=== PATIENT | female | born 1965 | race Caucasian/White ===

== ENCOUNTER → 2020-06-14 | Outpatient (CLI) | payer BC ==
[~2020-06-14] MED LIST: IOPAMIDOL 370 MG/ML 200 ML INFUS..BTL INJ ONE; SODIUM CHLORIDE 0.9% 50ML 50 ML ONE
--- NOTE | 2020-06-14 16:08 | Diagnostic Imaging Report ---
EXAM: Bone density study HISTORY: Osteoporosis Comparison: 04/16/2018 History: [employer]. Glossary: The BMD = bone mineral density T score = standard deviation from young adult population Z score = standard deviation from age adjusted population FINDINGS: LUMBAR SPINE: BMD: 0.760 gm/cm2 T score: -2.6 Z score: -1.6 Previously: BMD not applicable and T score not applicable. WHO classification: Osteoporosis LEFT FEMORAL NECK: BMD: 0.773 gm/cm2 T score: -1.4 Z score: -0.7 Previously: BMD not applicable and T score not applicable. WHO classification: Osteopenia IMPRESSION: As above. DIAGNOSTIC CRITERIA: Normal: BMD < 1 SD from young adult population. Osteopenia: BMD <1 to < 2.5 SD. Corresponds to a 1 - 2x increased risk of an osteoporotic fracture of the lumbar spine as compared to the young adult population. Osteoporosis: BMD > 2.5 SD corresponds to a 2x increased risk of an osteoporotic fracture of the lumbar spine as compared to the young adult population. Severe osteoporosis: Osteoporosis + one or more fragility fractures Signed by: Vishal Love MD on 06/14/2020 4:04 PM
--- NOTE | 2020-06-14 16:29 | Diagnostic Imaging Report ---
Thyroid Ultrasound Clinical Diagnosis: Hyperparathyroidism Comparison: None Technique: Multiple images were submitted for interpretation. Multiple longitudinal and transaxial images were performed with a high frequency linear transducer. Report: Right lobe: The right lobe measures 4.8 x 1.7 x 1.7 cm. There is a 3 mm cyst without calcification in the mid right lobe. No imaging follow-up is needed. Left lobe: The left lobe measures 1.4 x 1.6 cm. There is a nodule laterally and inferiorly measuring 0.5 cc by 0.3 AP by 0.4 transverse in centimeters. The nodule is mixed cystic and solid, isoechoic and its solid part, has smooth margins and a comet tail calcification. TI-RADS: Score 5, level 4, no imaging follow-up needed. There is another nodule in the mid inferior right arm that measures 3 mm. No imaging follow-up is needed. The isthmus measures 4 mm. Homogenous texture. Impression: Ultrasound thyroid with findings and recommendations as described above. Parathyroid glands are not seen on this exam. Signed by: Vishal Love MD on 06/14/2020 4:25 PM
--- NOTE | 2020-06-15 07:35 | Diagnostic Imaging Report ---
EXAMINATION: CT of the neck without [place] contrast HISTORY: 55-year-old female with primary hyperparathyroidism, evaluate for parathyroid adenoma. Kidney stones, urinary infections. COMPARISON: None TECHNIQUE: Multidetector helical axial images were obtained from the lulú to the angle of the mandible before and during intravenous infusion of iodinated contrast material. Images were reconstructed using soft tissue and bone algorithms and were viewed in multiplanar format. Intravenous contrast: 100 mL of Isovue-370. Dose modulation, iterative reconstruction, and/or weight based adjustment of the mA/kV was utilized to reduce the radiation dose to as low as reasonably achievable. FINDINGS: Mass: Small approximately 7 mm hyperenhancing nodule (148 HU) behind the superior pole of the right thyroid lobe, deeply located to the right of the esophagus and posterior to the tracheoesophageal groove (best seen on axial image 89 of the thin cuts, axial image 45 for the thick cuts and coronal image 47, please see arrows), small inferior polar vessel. Lymph nodes: No lymphadenopathy. Sinuses: Prominent mucosal inflammatory thickening and partial opacification of the left maxillary sinus. Mild mucosal inflammatory thickening of the left greater than the right ethmoidal air cells (probable prior bilateral ethmoidectomy and right maxillary antrectomy, correlate with clinical history). Small retention cyst in the right sphenoid sinus, mucosal inflammatory thickening of hypoplastic left sphenoid sinus. Oral cavity: Unremarkable. Salivary glands: Submandibular glands unremarkable. Partially visualized parotid glands are unremarkable. Pharynx: Unremarkable tim and hypopharynx Larynx: Unremarkable. Thyroid gland: Unremarkable. Upper esophagus: Unremarkable. Blood vessels: Unremarkable. Bones: Unremarkable. Incidental findings: None IMPRESSION: 1. Consistent with a small right superior thyroid, deeply located behind the superior pole of the right thyroid lobe, to the right of the esophagus. 2. No enlarged cervical lymphadenopathy. Signed by: Dr. Aline Vitale M.D. on 06/15/2020 7:32 AM
== END ==
LOC: DX 15:11
PROVIDERS: ATTEND Physician Assistant Surgical
DX: E21.0 Primary hyperparathyroidism (principal)
CPT/HCPCS: 70492; 76536; 77080; Q9967

== ENCOUNTER → 2020-06-16 | Outpatient (CLI) | payer BC ==
[2020-06-19 10:18] LABS: CREATININE,URINE RANDOM 82.2 mg/dL (47-110)
== END ==
LOC: LAB 13:30
PROVIDERS: ATTEND Internal Medicine
DX: E21.3 Hyperparathyroidism, unspecified (principal)
CPT/HCPCS: 36415; 82310; 82565; 82575